=== PATIENT | female | born 1995 | race Caucasian/White ===

== ENCOUNTER → 2024-01-11 14:18 | Outpatient (REF) | payer OTHER, SELFPAY | LOC: RAD 14:18 | PROVIDERS: ATTENDING PHYSICIAN Nurse Practitioner Family | DX: Z34.01 Encounter for supervision of normal first pregnancy, first trimester (principal); R10.2 Pelvic and perineal pain | CPT/HCPCS: 76801 ==

== ENCOUNTER 2024-02-08 16:19 | Emergency (ER) | payer OTHER, SELFPAY ==
[2024-02-08 16:24] VITALS: BP 113/59
--- NOTE | 2024-02-08 17:00 | ED.GENMED ---
History of Present Illness
General
Chief Complaint: Abdominal Symptoms
Time Seen by Provider: 02/08/24 16:59
History of Present Illness
History of Present Illness:
TIME OF INITIAL ENCOUNTER: 5 PM
HPI: The patient presents due to nausea and vomiting and she is 11 weeks . She was sent here by [facility] for IV fluids. She has some waves of 'searing' abdominal pain which is poorly localized. She had been taking Zofran. She is known to
Dr. Mckeon. No other concerns regarding the .
EXAM:
GENERAL: Appears somewhat generally weak/dehydrated
HEENT: Dry oral mucosa
CARDIOVASCULAR: No murmurs, normal heart rate, regular rhythm, No chest wall tenderness
PULMONARY: No respiratory distress, breath sounds are clear and equal
ABDOMEN: Soft with no peritoneal signs, no significant tenderness
NEUROLOGIC: Excellent strength all extremities, no coordination deficits
PSYCHIATRIC: Appropriate mental status, normal insight and judgement
EXTREMITIES: Nontender, no edema, moves all extremities equally
SKIN: No rash, no lesions
NUMBER AND COMPLEXITY OF PROBLEMS ADDRESSED AT THE ENCOUNTER
� Chronic conditions affecting care: No significant past medical history but is currently
� Acute Exacerbation and/or Progression of Chronic Illness: This is an acute problem
� Differential Diagnosis includes: Hyperemesis gravidarum, dehydration, ELIZABETH
AMOUNT AND/OR COMPLEXITY OF DATA TO BE REVIEWED AND ANALYZED
� I performed an independent evaluation of and my interpretation is:
EKG:
CT:
X-rays:
Laboratory Studies: 3+ ketones in the urine, otherwise labs unremarkable however bicarb is minimally low at 20
Other:
� Review of other/old records: I reviewed ultrasound from 142 that showed live IUP measuring 7 weeks 6 days with heart rate of 165
� Clinical information was obtained by an independent historian: I spoke to at bedside
� Prescriptions/Medications Considered but not given: The patient has already tried doxylamine with B6 which has not helped; consider Reglan orally however ultimately patient declined
� Further testing considered but not performed:
RISK OF COMPLICATIONS AND/OR MORBIDITY OR MORTALITY OF PATIENT MANAGEMENT
� Social determinants of health affecting care: Lives at home
� Discussion with other providers: I sent message to Dr. Mckeon at 6:18 PM; she agrees patient can be discharged
� Escalation of care including admission/observation vs risk of discharge considered: Given concern for dehydration in the setting of hyperemesis gravidarum, 2 L of saline have been given.
ANY OTHER UPDATES:
6:15 PM: I reassessed patient. No urine output yet�will give another liter of fluid
P.m.: The patient voided earlier and now feels significant improved
Phy Exam
Physical Exam
Physical Exam:
See HPI
Course
Orders/Labs/Results
Orders:
Orders
02/08/24 17:00
0.9% Sodium Chloride 1000 ml [Nss] 1,000 ml IV BOLUS
0.9% Sodium Chloride 1000 ml [Nss] 1,000 ml IV BOLUS
02/08/24 17:05
Metoclopramide [Reglan] 10 mg IV NOW STA
02/08/24 17:16
Complete Blood Count/With Diff Urgent
Comprehensive Metabolic Panel Urgent
02/08/24 18:12
0.9% Sodium Chloride 1000 ml [Nss] 1,000 ml IV BOLUS
02/08/24 19:05
Urinalysis Reflex To Culture Urgent
Date Specimen was Collected: 02/08/24
Time Specimen was Collected: 19:03
Urine Microscopic Reflex Cult Urgent
Urine Culture Urgent
RADHA Source: U
Specimen Description:
Date Specimen was Collected: 02/08/24
Time Specimen was Collected: 19:03
Abnormal Lab Results
02/08/24 02/08/24
17:16 19:05
RBC 4.09 L 10^6/uL
(4.20-5.40)
Hct 36.1 L %
(37.0-47.0)
MCH 32.0 H pg
(27.0-31.0)
Absolute Neuts (auto) 8.7 H 10^3/uL
(1.4-6.5)
Absolute Lymphs (auto) 0.7 L 10^3/uL
(1.2-3.4)
Neutrophils % 87.7 H %
(42.2-75.2)
Lymphocytes % 7.2 L %
(20.5-51.1)
Carbon Dioxide 20 L mmol/L
(22-30)
Urine Ketones 3+ A
(Negative)
Leukocyte Esterase Rfl 1+ A
(Negative)
Urine Bacteria (Reflex) Moderate A
(Negative)
02/08/24 17:16
02/08/24 17:16
Vital Signs
Initial and Last Documented VS:
Initial Vital Signs
Temp Pulse Resp BP Pulse Ox
98.5 F 81 16 113/59 98
02/08/24 16:24 02/08/24 16:24 02/08/24 16:24 02/08/24 16:24 02/08/24 16:24
Last Documented Vital Signs
Temp Pulse Resp BP Pulse Ox
98.5 F 81 16 113/59 98
02/08/24 16:24 02/08/24 16:24 02/08/24 16:24 02/08/24 16:24 02/08/24 16:24
*Critical Care Note
Total Time (30-74mins, 75-104mins- exclusive of procedures): Not Applicable
ED Attending Note
-
Portions of this chart may have been created with voice recognition software.� Occasional wrong word or��sound alike� substitutions may have occurred due to the inherent limitations of voice recognition software.
Discharge Plan
Departure
Referrals:
Barbara Mckeon MD [Family Provider] -
Interventions
Interventions:
*Risk Screen - Suicide Last Done: 02/08/24 16:24
*General Assessment Last Done: 02/08/24 17:15
*Neglect/Abuse Screening Last Done: 02/08/24 16:24
WC-Agggql-Nztuuurtpn Assessment Last Done: 02/08/24 17:15
Discharge Date and Time
Print Language: CHADIAN
[2024-02-08] MEDS: NSS 1000 IV ×3 (17:14→18:17)
[2024-02-08] MEDS: REGLAN 10 MG IV (17:15)
[2024-02-08 17:29] LABS: % Basophils 0.3 % (0-2); % Eosinophils 0.1 % (0-6); % Immature Granulocytes 0.3 % (0-0.5); % Lymphocytes 7.2 % (20.5-51.1); % Monocytes 4.4 % (1.7-9.3); % Neutrophils 87.7 % (42.2-75.2); Absolute Lymphocytes 0.7 10^3/uL (1.2-3.4); Absolute Monocytes 0.4 10^3/uL (0.1-0.6); Absolute Neutrophils 8.7 10^3/uL (1.4-6.5); Hematocrit 36.1 % (37.0-47.0); Hemoglobin 13.1 g/dL (12.0-16.0); Mean Corp Hgb Conc. 36.3 g/dL (33.0-37.0); Mean Corpuscular Volume 88.3 fL (81.0-99.0); Mean Platelet Volume 9.8 fL (7.4-10.4); Nucleated Red Blood Cells % 0 %; Platelet Count 210 10^3/uL (130-400); Red Blood Cell Count 4.09 10^6/uL (4.20-5.40); White Blood Cell Count 9.9 10^3/uL (4.8-10.8)
[2024-02-08 17:40] LABS: ALT (SGPT) 13 U/L (0-35); AST (SGOT) 19 U/L (14-36); Albumin 4.3 g/dl (3.5-5.0); Alkaline Phosphatase 47 U/L (38-126); Blood Urea Nitrogen 10 mg/dl (7-17); Calcium 9.1 mg/dl (8.4-10.2); Carbon Dioxide 20 mmol/L (22-30); Chloride 103 mmol/L (98-107); Glucose 95 mg/dl (70-99); Potassium 3.6 mmol/L (3.5-5.1); Sodium 138 mmol/L (135-145); Total Bilirubin 0.7 mg/dl (0.2-1.3); Total Protein 6.8 g/dl (6.3-8.2); eGFR > 60.00
--- NOTE | 2024-02-08 19:00 | EDRN ---
Report received, patient was able to ambulate to the restroom to obtain sample reports nausea is slightly better.
[2024-02-08 19:16] LABS: Urine Albumin Negative (Neg - Trace); Urine Bilirubin Negative (Negative); Urine Character Slightly Cloudy (Clear); Urine Color Yellow; Urine Glucose Negative (Negative); Urine Ketone 3+ (Negative); Urine Leukocyte 1+ (Negative); Urine Nitrite Negative (Negative); Urine Occult Blood Negative (Negative); Urine Urobilinogen Negative (Neg - 1+)
[2024-02-08 19:38] LABS: Urine Mucus Few
[2024-02-08 19:39] LABS: Urine Bacteria Moderate (Negative); Urine Red Blood Cell 0-2 /HPF (0-2)
== END 2024-02-08 20:22 | disposition home or self-care (01) ==
LOC: EMR 16:19
PROVIDERS: EMERGENCY PHYSICIAN Emergency Medicine; FAMILY PHYSICIAN Obstetrics & Gynecology
DX: O21.9 Vomiting of pregnancy, unspecified (principal); Z3A.11 11 weeks gestation of pregnancy
CPT/HCPCS: 96374; 96361; 99284; 80053; 81003; 81015; 85025; 87086

== ENCOUNTER 2024-02-17 16:42 | Emergency (ER) | payer OTHER, SELFPAY ==
[2024-02-17 16:53] VITALS: BP 130/87
[2024-02-17 17:18] LABS: % Basophils 0.4 % (0-2); % Eosinophils 1.4 % (0-6); % Immature Granulocytes 0.3 % (0-0.5); % Lymphocytes 30.3 % (20.5-51.1); % Monocytes 6.1 % (1.7-9.3); % Neutrophils 61.5 % (42.2-75.2); Absolute Eosinophils 0.2 10^3/uL (0-0.7); Absolute Lymphocytes 3.2 10^3/uL (1.2-3.4); Absolute Monocytes 0.6 10^3/uL (0.1-0.6); Absolute Neutrophils 6.4 10^3/uL (1.4-6.5); Hematocrit 37.2 % (37.0-47.0); Mean Corp Hgb Conc. 34.9 g/dL (33.0-37.0); Mean Corpuscular Hgb 31.9 pg (27.0-31.0); Mean Corpuscular Volume 91.4 fL (81.0-99.0); Mean Platelet Volume 9.5 fL (7.4-10.4); Nucleated Red Blood Cells % 0 %; Platelet Count 277 10^3/uL (130-400); Red Blood Cell Count 4.07 10^6/uL (4.20-5.40); White Blood Cell Count 10.4 10^3/uL (4.8-10.8)
[2024-02-17 17:31] LABS: ALT (SGPT) 12 U/L (0-35); AST (SGOT) 20 U/L (14-36); Albumin 4.4 g/dl (3.5-5.0); Alkaline Phosphatase 35 U/L (38-126); Blood Urea Nitrogen 9 mg/dl (7-17); Calcium 9.1 mg/dl (8.4-10.2); Carbon Dioxide 25 mmol/L (22-30); Chloride 101 mmol/L (98-107); Glucose 86 mg/dl (70-99); Potassium 3.8 mmol/L (3.5-5.1); Sodium 137 mmol/L (135-145); Total Bilirubin 0.2 mg/dl (0.2-1.3); Total Protein 7.1 g/dl (6.3-8.2); eGFR > 60.00
[2024-02-17 18:30] VITALS: BMI 24.8
[2024-02-17 18:33] VITALS: BP 106/66
--- NOTE | 2024-02-17 18:53 | ED.GENMED ---
History of Present Illness
General
Chief Complaint: Problems
Source: patient
Exam Limitations: none
Time Seen by Provider: 02/17/24 17:59
Nursing documentation reviewed up to this point in time: agreed with
History of Present Illness
History of Present Illness:
Patient is a 28-year-old female at approximately 13 weeks gestation presenting with vaginal bleeding. Patient initially noticed bleeding around 4 PM today when she used the bathroom. She states it is more than 'spotting' although not heavy.
She does state that it is essentially bright red blood. She has had very mild lower back pain although no significant abdominal pain/cramping. Patient denies any fever, chills, shortness dizziness/lightheadedness. No urinary symptoms.
Of note�patient was seen at [facility] yesterday due to sores that she noticed near her vaginal opening. She states they were 'irritated '. During office visit she did have a pelvic exam and cervical swabbing/cultures. [facility] was concern for possible
HSV outbreak and did start patient on Valtrex pending culture data. Patient has no known history of HSV or any known contact with HSV.
uncomplicated.
Review of Systems
Review of Systems
Allergies reviewed?: Yes
All Other Systems: ROS reviewed and negative except as documented in HPI and ROS
Phy Exam
Physical Exam
Physical Exam:
Vitals: Patient's vital signs are stable. Afebrile
General: Patient is well appearing, no acute distress. Nontoxic.
Skin: Warm and dry, no rashes or lesions
Head: Normocephalic, atraumatic
Eyes: Sclera nonicteric. EOMs intact. No nystagmus.
Throat: Protecting airway
Neck: Normal ROM, no cervical spine tenderness, no meningismus
Cardiac: Regular rate and rhythm, no murmurs.
Pulm: Normal respiratory effort, no wheezes, rales, rhonchi heard on exam.
Abdomen: Abdomen soft. No abdominal tenderness.
: Very minimal red blood from vaginal introitus. Few sores on left labia majora near vaginal introitus. No clear vesicular lesions or ulcerations.
Extremities: No evidence of cyanosis or edema. Palpable distal pulses
Neuro: AAOx3. Grossly intact.
Psychiatric: Normal affect.
Course
Orders/Labs/Results
Orders:
Orders
02/17/24 17:02
US 1st Trimester Urgent
Comment: 13 weeks
Reason For Exam: vaginal bleedig with cramping
02/17/24 17:06
CMP [Comprehensive Metabolic Panel] Urgent
Complete Blood Count/With Diff Urgent
HCG,SERUM [Beta HCG Quantitative] Urgent
Is this a screen?: No
Comment: 13 weeks
02/17/24 18:50
Type+Screen Urgent
02/17/24 19:06
ABO2 Urgent
BBK Wristband Number:
Associate notified that ABO2 has been ordered: [id number]
Date: 02/17/24
Time: 19:02
Insulation Cupola Charger ID: [id number]
Abnormal Lab Results
02/17/24
17:06
RBC 4.07 L 10^6/uL
(4.20-5.40)
MCH 31.9 H pg
(27.0-31.0)
Alkaline Phosphatase 35 L U/L
(38-126)
02/17/24 17:06
02/17/24 17:06
Vital Signs
Initial and Last Documented VS:
Initial Vital Signs
Temp Pulse Resp BP Pulse Ox
98.2 F 68 16 130/87 100
02/17/24 16:53 02/17/24 16:53 02/17/24 16:53 02/17/24 16:53 02/17/24 16:53
Last Documented Vital Signs
Temp Pulse Resp BP Pulse Ox
98.2 F 60 19 98/64 99
02/17/24 16:53 02/17/24 20:18 02/17/24 20:18 02/17/24 20:18 02/17/24 18:33
Information
Weeks gestation: Weeks: (13W6D)
Location: Location: (Intrauterine)
MDM/Problems Addressed
Differential Diagnosis Includes:
Not limited to: Threatened , missed , subchorionic hemorrhage, trauma from pelvic exam/swabs, etc.
MDM/Problems Addressed:
28-year-old female at approximate 13 weeks gestation presenting with mild vaginal bleeding. Some mild low back pain. No infectious symptoms. Patient was seen at [facility] yesterday where she had a pelvic exam and cervical swabs/cultures due to
few vulvar sores and concern for possible HSV outbreak. She was started on Valtrex. Vital signs are stable. Patient is afebrile. Patient well-appearing, no apparent distress. Abdomen soft and nontender. No reproducible lower back pain.
External genital exam does show minimal bleeding with grouping of sores on left labia majora near vaginal introitus. No obvious vesicular lesions. Labs were obtained in triage and reviewed. Hemoglobin stable at 13. Chemistry [place] [address]. An ultrasound was obtained which shows a single live intrauterine gestation with heart rate of 156.
Given recent pelvic exam and cultures obtained yesterday�consideration that bleeding may be secondary to microtrauma. Although threatened also a possibility. Will add on a type and screen. Case was discussed with [facility]�Dr. Anna. She
would only expect minor spotting following examination and patient is reporting slightly heavier bleeding than spotting. That being said�Dr. Anna does agree patient is stable for discharge with outpatient [facility] follow pending type and screen.
Discharge pending type and screen and RhoGAM consideration.
Chronic conditions affecting care:
N/A
Acute Exacerbation and/or Progression of Chronic Illness:
N/A
*Radiology
Radiology exam reviewed: radiology read reviewed (Live intrauterine gestation approximately 13 weeks 6 days. heart rate 156bpm)
*Pulse Oximetry
Patient hypoxic: no
*EKG
Interpreted by ED Provider?: NA
*Associate Artistic Director Interpretation
Rate: Associate Artistic Director- N/A
*Critical Care Note
Total Time (30-74mins, 75-104mins- exclusive of procedures): Not Applicable
Patient Management
Discussion with other providers: Agronomist ([facility]-Dr. Anna)
Update Note
Update Note:
Update: Patient A+ blood type. No indication for RhoGAM. Patient remains hemodynamically stable and well-appearing. She will be discharged home with very close return precautions. She will call [facility] in the morning for close follow-up. Patient
and patient's comfortable with plan. Case discussed with attending physician.
ED Attending Note
-
Portions of this chart may have been created with voice recognition software.� Occasional wrong word or��sound alike� substitutions may have occurred due to the inherent limitations of voice recognition software.
Discharge Plan
Departure
Patient Disposition: Home (Routine Discharge)
Date of Disposition: 02/17/24
Time of Disposition: 20:07
Patient with high blood pressure during this ER visit?: No
Condition: Good
Covid-19: Not Applicable
Discharge Problem:
Vaginal bleeding during
Instructions: Bleeding in Early (DC)
Referrals:
Laurence Anna, DO [Active] - Tomorrow
()
NONE,* [Family Provider] -
Activity Restrictions/Additional Instructions:
RETURN TO THE EMERGENCY DEPARTMENT WITH FEVER, PERSISTENT / HEAVY BLEEDING, LIGHTHEADEDNESS, SHORTNESS OF BREATH, DIZZINESS, SEVERE ABDOMINAL PAIN, WORSENING IN CURRENT SYMPTOMS, OR ANY OTHER CONCERNS
-You should take it easy over the next few days. Avoid any heavy lifting, strenuous activity, tampons, or any sexual activity until cleared by [facility].
-It is important stay well-hydrated. You can take Tylenol as needed for any mild pain.
-As discussed�you should call your [facility] tomorrow morning to schedule follow-up appointment/further monitoring
Monitor your symptoms closely and return to the emergency department any acute worsening/new symptoms or any other concerns
Interventions
Interventions:
*Risk Screen - Suicide Last Done: 02/17/24 16:57
*General Assessment Last Done: 02/17/24 18:30
*Neglect/Abuse Screening Last Done: 02/17/24 16:57
*ED COVID-19 Vaccine History Last Done: 02/17/24 16:53
*Nursing Disposition Last Done: 02/17/24 20:19
ED-Female Genitourinary Assessment Last Done: 02/17/24 18:32
Discharge Date and Time
Discharge Date/Time: 02/17/24 20:19
Print Language: TAJIK
[2024-02-17 20:18] VITALS: BP 98/64
== END 2024-02-17 20:19 | disposition home or self-care (01) ==
LOC: EMR 16:42
PROVIDERS: Emergency Medicine; EMERGENCY PHYSICIAN Emergency Medicine
DX: O20.9 Hemorrhage in early pregnancy, unspecified (principal); Z3A.13 13 weeks gestation of pregnancy
CPT/HCPCS: 99284; 76801; 80053; 84702; 85025; 86850; 86900; 86901

== ENCOUNTER → 2024-05-10 13:20 | Outpatient (REF) | payer OTHER, SELFPAY | LOC: PNTC 13:20 | PROVIDERS: ATTENDING PHYSICIAN Obstetrics & Gynecology | DX: O43.129 Velamentous insertion of umbilical cord, unspecified trimester (principal) | CPT/HCPCS: 76816; 76817 ==

== ENCOUNTER → 2024-07-25 09:53 | Outpatient (REF) | payer OTHER, SELFPAY | LOC: PNTC 09:53 | PROVIDERS: ATTENDING PHYSICIAN Obstetrics & Gynecology | DX: O43.123 Velamentous insertion of umbilical cord, third trimester (principal) | CPT/HCPCS: 59025; 76815 ==

== ENCOUNTER → 2024-08-01 14:28 | Outpatient (REF) | payer OTHER, SELFPAY | LOC: PNTC 14:28 | PROVIDERS: ATTENDING PHYSICIAN Obstetrics & Gynecology | DX: O43.123 Velamentous insertion of umbilical cord, third trimester (principal) | CPT/HCPCS: 59025; 76816 ==

== ENCOUNTER 2024-08-05 10:10 | Observation (INO) | payer OTHER, SELFPAY ==
[2024-08-05 10:13] VITALS: BP 120/70; BMI 30.1
== END 2024-08-05 11:58 | disposition home or self-care (01) ==
LOC: LDRP 10:10
PROVIDERS: ADMITTING PHYSICIAN Obstetrics & Gynecology
DX: O36.8130 Decreased fetal movements, third trimester, not applicable or unspecified (principal); Z3A.37 37 weeks gestation of pregnancy
CPT/HCPCS: 36415; 76815; 86850; 86900; 86901; G0378

== ENCOUNTER → 2024-08-08 10:05 | Outpatient (REF) | payer OTHER, SELFPAY | LOC: PNTC 10:05 | PROVIDERS: ATTENDING PHYSICIAN Obstetrics & Gynecology | DX: O43.123 Velamentous insertion of umbilical cord, third trimester (principal) | CPT/HCPCS: 59025; 76815 ==

== ENCOUNTER → 2024-08-15 10:00 | Outpatient (REF) | payer OTHER, SELFPAY | LOC: PNTC 10:00 | PROVIDERS: ATTENDING PHYSICIAN Obstetrics & Gynecology | DX: O43.123 Velamentous insertion of umbilical cord, third trimester (principal) | CPT/HCPCS: 59025; 76815 ==

== ENCOUNTER 2024-08-18 19:02 | Inpatient (IN) | payer OTHER, SELFPAY ==
[2024-08-18 19:09] VITALS: BP 128/62; BMI 30.1
[2024-08-18 20:03] LABS: % Basophils 0.2 % (0-2); % Immature Granulocytes 0.4 % (0-0.5); % Lymphocytes 22.3 % (20.5-51.1); % Neutrophils 70.1 % (42.2-75.2); Absolute Eosinophils 0.1 10^3/uL (0-0.7); Absolute Immature Granulocytes 0.1 10^3/uL (0-0.05); Absolute Lymphocytes 2.8 10^3/uL (1.2-3.4); Absolute Monocytes 0.8 10^3/uL (0.1-0.6); Absolute Neutrophils 8.8 10^3/uL (1.4-6.5); Hematocrit 31.9 % (37.0-47.0); Hemoglobin 11.2 g/dL (12.0-16.0); Mean Corp Hgb Conc. 35.1 g/dL (33.0-37.0); Mean Corpuscular Hgb 32.1 pg (27.0-31.0); Mean Corpuscular Volume 91.4 fL (81.0-99.0); Mean Platelet Volume 11.2 fL (7.4-10.4); Nucleated Red Blood Cells % 0 %; Platelet Count 183 10^3/uL (130-400); Red Blood Cell Count 3.49 10^6/uL (4.20-5.40); Red Cell Dist. Width 13.7 % (11.5-14.5); White Blood Cell Count 12.6 10^3/uL (4.8-10.8)
[2024-08-19] MEDS: CYTOTEC 25 MICROGRAM VAG (02:27)
[2024-08-19] MEDS: CYTOTEC 50 MICROGRAM PO (06:23)
[2024-08-19] MEDS: LR 1000 IV ×2 (09:00→12:59)
[2024-08-19] MEDS: STADOL 1 MG IV (13:00)
[2024-08-19] MEDS: SUBLIMAZE 100 MCG EPIDURAL (16:31)
[2024-08-19] MEDS: FENTANYL/BUPIVACAINE 100 EPIDURAL (16:31)
[2024-08-19] MEDS: PITOCIN 30 UNITS/NSS 500 ML IV (17:42)
[2024-08-19] MEDS: ZOFRAN 4 MG IV (20:31)
[2024-08-20] MEDS: LR 1000 IV ×2 (00:09→19:00)
[2024-08-20] MEDS: FENTANYL/BUPIVACAINE 100 EPIDURAL ×3 (00:46→16:11)
[2024-08-20] MEDS: CYTOTEC PO ×2 (03:39)
[2024-08-20] MEDS: PITOCIN 30 UNITS/NSS 500 ML IV (20:38)
[2024-08-20] MEDS: ZOFRAN 4 MG IV (21:13)
[2024-08-21] MEDS: MOTRIN 600 MG PO ×4 (00:27→20:40)
[2024-08-21 06:17] LABS: Hematocrit 32.8 % (37.0-47.0)
[2024-08-21] MEDS: SENOKOT-S 1 TABLET PO (08:11)
[2024-08-21] MEDS: HYDROCORTISONE 1% CREAM 1 APPLIC TOPICAL ×2 (08:12→16:25)
[2024-08-21] MEDS: TYLENOL 650 MG PO ×4 (10:32→23:06)
[2024-08-22] MEDS: TYLENOL 650 MG PO ×2 (03:48→09:56)
[2024-08-22] MEDS: MOTRIN 600 MG PO ×2 (03:48→09:55)
[2024-08-23 14:14] LABS: Syphilis/T. pallidum Ab Reflex Negative (Negative)
== END 2024-08-22 13:06 | disposition home or self-care (01) | DRG 806 ==
LOC: LDRP 19:02
PROVIDERS: Obstetrics & Gynecology; ADMITTING PHYSICIAN Student in an Organized Health Care Education/Training Program
PROC: 3E0P7VZ Introduction of Hormone into Female Reproductive, Via Natural or Artificial Opening (ICD-10-PCS; 2024-08-18)
PROC: 0U7C7DJ Dilation of Cervix with Intraluminal Device, Temporary, Via Natural or Artificial Opening (ICD-10-PCS; 2024-08-19)
PROC: 10907ZC Drainage of Amniotic Fluid, Therapeutic from Products of Conception, Via Natural or Artificial Opening (ICD-10-PCS; 2024-08-20)
PROC: 10E0XZZ Delivery of Products of Conception, External Approach (ICD-10-PCS; 2024-08-20)
PROC: 0KQM0ZZ Repair Perineum Muscle, Open Approach (ICD-10-PCS; 2024-08-20)
DX: O43.123 Velamentous insertion of umbilical cord, third trimester (principal); O98.32 Other infections with a predominantly sexual mode of transmission complicating childbirth; Z37.0 Single live birth; O69.81X0 Labor and delivery complicated by cord around neck, without compression, not applicable or unspecified; Z3A.39 39 weeks gestation of pregnancy; O70.1 Second degree perineal laceration during delivery; A60.00 Herpesviral infection of urogenital system, unspecified; Z82.49 Family history of ischemic heart disease and other diseases of the circulatory system; Z80.41 Family history of malignant neoplasm of ovary; Z80.8 Family history of malignant neoplasm of other organs or systems; Z88.2 Allergy status to sulfonamides
CPT/HCPCS: 88307; 85014; 85018; 85025; 86780; 86850; 86900; 86901

== ENCOUNTER 2025-01-17 11:52 | Emergency (ER) | payer OTHER, SELFPAY ==
[2025-01-17 11:57] VITALS: BP 124/73
[2025-01-17 12:25] LABS: Hematocrit 39.0 % (37.0-47.0); Hemoglobin 13.0 g/dL (12.0-16.0); Mean Corp Hgb Conc. 33.3 g/dL (33.0-37.0); Mean Corpuscular Volume 97.5 fL (81.0-99.0); Nucleated Red Blood Cells % 0 %; Platelet Count 252 10^3/uL (130-400); Red Cell Dist. Width 12.1 % (11.5-14.5)
[2025-01-17 12:33] LABS: HCG, Serum Qualitative Screen Negative
[2025-01-17 12:44] LABS: ALT (SGPT) 15 U/L (0-35); AST (SGOT) 22 U/L (14-36); Albumin 4.5 g/dl (3.5-5.0); Alkaline Phosphatase 53 U/L (38-126); Blood Urea Nitrogen 12 mg/dl (7-17); Calcium 9.0 mg/dl (8.4-10.2); Carbon Dioxide 25 mmol/L (22-30); Chloride 106 mmol/L (98-107); Glucose 94 mg/dl (70-99); Potassium 4.1 mmol/L (3.5-5.1); Sodium 136 mmol/L (135-145); Total Protein 7.3 g/dl (6.3-8.2); eGFR > 60.00
--- NOTE | 2025-01-17 14:48 | ED.GENMED ---
History of Present Illness
General
Chief Complaint: Abdominal Symptoms
Source: patient
Exam Limitations: none
Time Seen by Provider: 01/17/25 14:33
Nursing documentation reviewed up to this point in time: agreed with
History of Present Illness
History of Present Illness:
29-year-old female with history of IBS presents 5 months , for the past 3 days has been having episodic spells characterized by sensation of near fainting. These episodes last 1 to 2 hours and are accompanied by nausea, tingling in the
hands and feet and fatigue and blurry vision. She states they occur a couple of times a day. Her activity level includes being up and around the house taking care of her baby playing with her baby. The last episode was this morning which lasted
about 1 hour. Last night while making dinner, she states she experienced about an hour and a half of nausea, dizziness, hands and feet tingling and felt cold. She denies chest pain or SOB or abdominal pain. Denies N/V/D/C. She called her [facility]
office of Dr. Reza Holden and they told her they did not think it was related in any way to her delivery. They suggested the symptoms sound like diabetes.
Review of Systems
Review of Systems
Allergies reviewed?: Yes
All Other Systems: ROS reviewed and negative except as documented in HPI and ROS
Phy Exam
Physical Exam
Physical Exam:
GENERAL: No acute distress. A&Ox3.
CONSTITUTIONAL: Afebrile.
EYES: clear, conjunctivae normal
ENMT: moist mucus membranes, Pharynx nl
RESPIRATORY: Regular respirations, nonlabored, lungs clear.
CARDIOVASCULAR: Regular rate and rhythm, no murmurs, no rubs.
GI: Soft, nontender, normal BS
MUSCULOSKELETAL: Moves with ease. Well perfused.
SKIN: Warm, dry, pink
PSYCH: Normal mood and affect. Well kept, interactive and appropriate
NEUROLOGIC: Awake, alert and oriented. No focal neurological deficits. Patellar reflexes equal, brachial reflexes equal, strength equal throughout. Sensation to touch equal throughout. Ambulates well with steady gait
Course
Orders/Labs/Results
Orders:
Orders
01/17/25 12:00
Test Result ONCE
01/17/25 12:02
C-Reactive Protein Urgent
Comment: ADD ON
Comprehensive Metabolic Panel Urgent
Ferritin Urgent
Comment: ADD ON
Folate Urgent
Comment: ADD ON
HCG, Serum Qualitative Screen Urgent
TSH Reflex To Free T4 Urgent
Comment: ADD ON
Vitamin B12 Urgent
Comment: ADD ON
01/17/25 12:03
Complete Blood Count/With Diff Urgent
Erythrocyte Sed Rate Urgent
Comment: ADD ON
01/17/25 15:38
Add On- LAB Urgent
Tests Added?: TSH reflex T4
01/17/25 15:40
Orthostatic VS- Treatment ONCE
01/17/25 15:56
Add On- LAB Urgent
Tests Added?: ESR, CRP, B12, Folate, Ferritin
Abnormal Lab Results
01/17/25
12:03
RBC 4.00 L 10^6/uL
(4.20-5.40)
MCH 32.5 H pg
(27.0-31.0)
Absolute Lymphs (auto) 3.5 H 10^3/uL
(1.2-3.4)
01/17/25 12:03
01/17/25 12:02
Vital Signs
Initial and Last Documented VS:
Initial Vital Signs
Temp Pulse Resp BP Pulse Ox
98.7 F 53 16 124/73 99
01/17/25 11:57 01/17/25 11:57 01/17/25 11:57 01/17/25 11:57 01/17/25 11:57
Last Documented Vital Signs
Temp Pulse Resp BP Pulse Ox
98.7 F 53 16 124/73 99
01/17/25 11:57 01/17/25 11:57 01/17/25 11:57 01/17/25 11:57 01/17/25 14:49
MDM/Problems Addressed
Differential Diagnosis Includes:
Orthostatic hypotension, anemia, anxiety, hyperglycemia, dehydration, hyperventilation, electrolyte imbalance, MS
MDM/Problems Addressed:
29-year-old female with history of IBS presents 5 months , for the past 3 days has been having episodic spells characterized by sensation of near fainting. These episodes last 1 to 2 hours and are accompanied by nausea, tingling in the
hands and feet and fatigue and blurry vision. She states they occur a couple of times a day. Her activity level includes being up and around the house taking care of her baby playing with her baby. The last episode was this morning which lasted
about 1 hour. Last night while making dinner, she states she experienced about an hour and a half of nausea, dizziness, hands and feet tingling and felt cold. She denies chest pain or SOB or abdominal pain. Denies N/V/D/C. She called her [facility]
office of Dr. Reza Holden and they told her they did not think it was related in any way to her delivery. They suggested the symptoms sound like diabetes.
Afebrile, NAD, well-appearing
CBC normal
CMP normal
hCG negative
Orthostatics negative
Patient has no PCP as they moved into the area a year ago, she got and was just seeing her [employer] [employer] doctor
Her information was given to the PCP hotline and she was informed that they will call her within the next 2 days
I have very low suspicion of MS but I have added lab work that would typically be done in the ED and have referred to neuro for follow-up with symptoms persist.
All add-on labs are normal
*Pulse Oximetry
SaO2: 99
Oxygen Mode of Delivery: Room air
Patient hypoxic: no
*Critical Care Note
Total Time (30-74mins, 75-104mins- exclusive of procedures): Not Applicable
ED Attending Note
-
Portions of this chart may have been created with voice recognition software.� Occasional wrong word or��sound alike� substitutions may have occurred due to the inherent limitations of voice recognition software.
Discharge Plan
Departure
Patient Disposition: Home (Routine Discharge)
Date of Disposition: 01/17/25
Time of Disposition: 16:02
Patient with high blood pressure during this ER visit?: No
Condition: Good
Discharge Problem:
Near syncope
Instructions: Near Fainting (DC)
Prescriptions:
No Action
acetaminophen 325 mg Tablet
650 mg PO Q4HPRN PRN (Reason: mild pain) Qty: 0 0RF
ibuprofen 600 mg Tablet
600 mg PO Q6HPRN PRN (Reason: moderate pain/cramps) Qty: 0 0RF
Referrals:
Carlin Beach MD [Active, Neurology] - As needed
NONE,* [Family Provider, Internal Medicine]
Activity Restrictions/Additional Instructions:
As we discussed, I sent your name to the primary care provider hotline, someone will call you within the next day or 2 to recommend a family doctor.
Nothing worrisome in your workup here today, all lab work so far is normal. I have extremely low suspicion of MS but I did some extra lab work just to be sure.
You can look on your phone in your chart for the rest your lab work. If you have any questions about call me tomorrow at [phone] and ask for Shanelle
I have given you the name of a neurologist if needed. If your symptoms persist beyond another 2 weeks or if they get worse follow up with the neurologist.
You may return here at any time if your symptoms worsen or anything worries you.
Interventions
Interventions:
*Risk Screen - Suicide Last Done: 01/17/25 11:59
*General Assessment Last Done: 01/17/25 16:00
*Neglect/Abuse Screening Last Done: 01/17/25 11:59
*ED- Fall Risk Assessment Last Done: 01/17/25 16:00
*ED COVID-19 Vaccine History Last Done: 01/17/25 16:00
*ED Influenza Vaccine History Last Done: 01/17/25 16:00
*Nursing Disposition Last Done: 01/17/25 17:25
LN-Slkwsq-Lrnbhoqnue Assessment Last Done: 01/17/25 16:00
Discharge Date and Time
Discharge Date/Time: 01/17/25 17:26
Print Language: EMIRATI
[2025-01-17 15:46] VITALS: BP 109/75; BP 114/75; BP 116/77; PULSE 58; PULSE 60; PULSE 66
[2025-01-17 16:53] LABS: C-Reactive Protein < 5.00 mg/L (0.0-10.00)
[2025-01-17 17:29] LABS: Ferritin 18.9 ng/ml (6.24-137)
[2025-01-17 18:01] LABS: Folate 7.7 ng/ml (2.76-20); Vitamin B12 442 pg/ml (239-931)
== END 2025-01-17 17:26 | disposition home or self-care (01) ==
LOC: EMR 11:52
PROVIDERS: Student in an Organized Health Care Education/Training Program; EMERGENCY PHYSICIAN Emergency Medicine
DX: R55 Syncope and collapse (principal); K58.9 Irritable bowel syndrome, unspecified
CPT/HCPCS: 99283; 80053; 82607; 82728; 82746; 84443; 84703; 85025; 85652; 86140